=== PATIENT | female | born 1965 | race Caucasian/White ===

== ENCOUNTER 2021-01-07 13:35 | Outpatient (CLI) | payer OTHER ==
--- NOTE | 2021-01-07 14:43 | XRAY Report ---
PROCEDURE: Knee 3 View LT INDICATIONS: L KNEE PX TECHNIQUE: 3 views of the left knee(s) were acquired. COMPARISON: None. FINDINGS: Bones: No fractures or dislocations. No suspicious bony lesions. Mild tricompartmental osteoarthri tis is seen. Soft tissues: Small joint effusion. No suspicious soft tissue calcifications. IMPRESSION: Mild tricompartmental osteoarthritis. No fracture or dislocation. Small joint effusion. Reviewed by: Seng Isaac MD on 01/07/2021 2:42 PM PST Approved by: Seng Isaac MD on 01/07/2021 2:42 PM PST Station ID: [id number]
== END 2021-01-07 13:36 | disposition home or self-care (01) ==
LOC: DI.N 13:35
PROVIDERS: ATTEND Family Medicine
DX: M25.562 Pain in left knee (principal); M17.12 Unilateral primary osteoarthritis, left knee